=== PATIENT | male | born 1960 | race Caucasian/White ===

== ENCOUNTER 2024-05-21 21:49 | Inpatient (IN) | payer OTHER ==
[~2024-05-21 21:49] MED LIST: Iopamidol 370 76% 100 ML VIAL ONE
[2024-05-21 22:37] LABS: #Basophils 0.03 10x3/uL (0.0-0.2); %Basophils 0.4 % (0.0-1.0); %Eosinophils 1.5 % (0.0-10.0); %Lymphocytes 20.6 % (21.0-51.0); %Monocytes 6.7 % (0.0-10.0); %Neutrophils 70.5 % (42.0-75.0); Hematocrit 24.7 % (42.0-52.0); Hemoglobin 7.7 g/dL (14.0-18.0); Mean Corpuscular HGB CONC 31.2 g/dL (32.0-36.0); Mean Corpuscular Hemoglobin 24.4 pg (27.0-31.0); Mean Corpuscular Volume 78.2 fL (78.0-98.0); Mean Platelet Volume 10.3 fL (7.4-10.4); Platelet Count 149 10x3/uL (130-400); RBC Distribution Width 15.9 % (11.5-14.5); Red Blood Cell (RBC) Count 3.16 mill/uL (4.70-6.10)
[2024-05-21] MEDS ORDERED: Pantoprazole 40 MG VIAL ONE (22:47)
[2024-05-21] MEDS ORDERED: Ondansetron PF 4 MG/2 ML Vial ONE (22:47)
[2024-05-21 22:56] LABS: INR-International Normal Ratio 1.7
[2024-05-21 22:57] LABS: ALT (SGPT) 20 U/L (8-55); AST (SGOT) 15 U/L (5-34); Albumin 2.9 g/dL (3.4-4.8); Alkaline Phosphatase 83 U/L (40-110); Anion Gap 12 mmol/L (10-20); BUN (Urea Nitrogen) 23 mg/dL (8.4-25.7); Bilirubin, Total 0.3 mg/dL (0.2-1.2); Calc. Creatinine Clearance 0 mL/min (70-130); Calcium 8.1 mg/dL (7.8-10.44); Carbon Dioxide 21 mmol/L (23-31); Chloride 107 mmol/L (98-107); Estimated GFR 57; Glucose 148 mg/dL (80-115); Potassium 3.9 mmol/L (3.5-5.1); Protein, Total 6.9 g/dL (5.8-8.1); Sodium 136 mmol/L (136-145)
[2024-05-21 22:58] LABS: PTT 96.7 sec (22.9-36.1)
[2024-05-21 23:02] LABS: Troponin I 0.033 ng/mL (< 0.028)
[2024-05-22] MEDS ORDERED: Ondansetron PF 4 MG/2 ML Vial IVP PRN (00:43)
[2024-05-22 01:20] LABS: Troponin I 0.019 ng/mL (< 0.028)
[2024-05-22 01:21] LABS: Hematocrit 23.7 % (42.0-52.0); Hemoglobin 7.3 g/dL (14.0-18.0)
[2024-05-22 02:39] VITALS: BMI 32.4
[2024-05-22] MEDS: Sodium Chloride 0.9% 1,000 ML IV SCH (02:46)
[2024-05-22] MEDS: Pantoprazole 80 MG, Admixture Fee 1 EACH in Sodium Chloride 0.9% 100 ML IVPB SCH (04:19)
[2024-05-22 04:38] LABS: #Basophils Less than 0.03 10x3/uL (0.0-0.2); %Basophils 0.4 % (0.0-1.0); %Eosinophils 1.9 % (0.0-10.0); %Lymphocytes 19.3 % (21.0-51.0); Hemoglobin 7.1 g/dL (14.0-18.0); Mean Corpuscular HGB CONC 30.9 g/dL (32.0-36.0); Mean Corpuscular Hemoglobin 24.5 pg (27.0-31.0); Mean Corpuscular Volume 79.3 fL (78.0-98.0); Mean Platelet Volume 10.4 fL (7.4-10.4); Platelet Count 147 10x3/uL (130-400)
[2024-05-22 04:46] LABS: Anion Gap 11 mmol/L (10-20); BUN (Urea Nitrogen) 23 mg/dL (8.4-25.7); Calc. Creatinine Clearance 72 mL/min (70-130); Calcium 7.9 mg/dL (7.8-10.44); Carbon Dioxide 22 mmol/L (23-31); Chloride 107 mmol/L (98-107); Estimated GFR 58; Glucose 126 mg/dL (80-115); Potassium 3.9 mmol/L (3.5-5.1); Sodium 136 mmol/L (136-145)
[2024-05-22 04:55] LABS: Troponin I Less than 0.010 ng/mL (< 0.028)
[2024-05-22 08:55] LABS: Hematocrit 27.3 % (42.0-52.0); Hemoglobin 8.4 g/dL (14.0-18.0)
[2024-05-22 12:42] LABS: Hemoglobin 8.1 g/dL (14.0-18.0)
[2024-05-22] MEDS: GoLYTELY 4,000 ml Bottle PO SCH (18:28)
[2024-05-22 18:39] LABS: Hematocrit 29.8 % (42.0-52.0); Hemoglobin 8.9 g/dL (14.0-18.0)
[2024-05-22] MEDS: FLU (Fluad Triv) TS24-25 (65UP)/MF59C/PF 45 MCG/0.5 ML Syringe IM ONE (19:04)
[2024-05-23] MEDS: Morphine 2 MG/ML VIAL SLOW IVP SCH (02:34)
[2024-05-23 05:34] LABS: #Basophils 0.04 10x3/uL (0.0-0.2); %Basophils 0.5 % (0.0-1.0); %Eosinophils 1.9 % (0.0-10.0); %Lymphocytes 12.7 % (21.0-51.0); %Monocytes 7.1 % (0.0-10.0); %Neutrophils 77.4 % (42.0-75.0); Hemoglobin 8.9 g/dL (14.0-18.0); Mean Corpuscular HGB CONC 31.8 g/dL (32.0-36.0); Mean Corpuscular Hemoglobin 24.7 pg (27.0-31.0); Mean Corpuscular Volume 77.8 fL (78.0-98.0); Mean Platelet Volume 10.5 fL (7.4-10.4); Platelet Count 191 10x3/uL (130-400); RBC Distribution Width 15.6 % (11.5-14.5)
[2024-05-23 06:06] LABS: Anion Gap 14 mmol/L (10-20); BUN (Urea Nitrogen) 16 mg/dL (8.4-25.7); Calc. Creatinine Clearance 69 mL/min (70-130); Calcium 8.3 mg/dL (7.8-10.44); Carbon Dioxide 20 mmol/L (23-31); Chloride 108 mmol/L (98-107); Estimated GFR 55; Glucose 100 mg/dL (80-115); Potassium 4.1 mmol/L (3.5-5.1); Sodium 138 mmol/L (136-145)
[2024-05-23 06:27] LABS: INR-International Normal Ratio 1.8
[2024-05-23] MEDS ORDERED: Ipratropium/Albuterol 3 ML NEB NEB PRN (08:00)
[2024-05-23] MEDS: Morphine 4 MG/ML VIAL SLOW IVP SCH (09:00)
[2024-05-23] MEDS: Clindamycin/D5W 900 MG in Premix 1 BAG IVPB SCH (09:02)
[2024-05-23] MEDS: Lidocaine 4% Patch TD SCH (09:02)
[2024-05-23] MEDS: Lactated Ringer's 1,000 ML IV SCH (09:36)
[2024-05-23] MEDS ORDERED: PROPOFOL 20 ML ONE (09:39)
[2024-05-23] MEDS ORDERED: Lidocaine 1% PF 5 ML VIAL ONE (09:39)
[2024-05-23] MEDS: Ipratropium/Albuterol 3 ML NEB NEB SCH (10:38)
[2024-05-23] MEDS ORDERED: PROPOFOL 200 MG/20 ML VIAL ONE (12:02)
[2024-05-23] MEDS ORDERED: Albuterol 2.5 MG (3 mL) NEB NEB PRN (14:01)
[2024-05-23] MEDS: Morphine 2 MG/ML VIAL SLOW IVP PRN (16:05)
[2024-05-23] MEDS: Gabapentin 300 MG CAP PO SCH ×2 (16:12→21:13)
[2024-05-23 17:20] LABS: Troponin I 0.014 ng/mL (< 0.028)
[2024-05-23] MEDS: Atorvastatin Calcium 10 MG TAB PO SCH (21:12)
[2024-05-23] MEDS: Loratadine 10 MG TAB PO SCH (21:13)
[2024-05-23] MEDS: DULoxetine 30 MG CAP PO SCH (21:13)
[2024-05-23] MEDS: Furosemide 20 MG TAB PO SCH (21:14)
[2024-05-23] MEDS: Terazosin HCl 1 MG CAP PO SCH (21:14)
[2024-05-23] MEDS: Oxybutynin 5 MG TAB PO SCH (21:14)
[2024-05-24] MEDS: Transdermal Patch Removal TOP SCH (01:50)
[2024-05-24 04:08] LABS: #Basophils 0.03 10x3/uL (0.0-0.2)
[2024-05-24 04:35] LABS: Anion Gap 11 mmol/L (10-20); BUN (Urea Nitrogen) 13 mg/dL (8.4-25.7); Calc. Creatinine Clearance 63 mL/min (70-130); Calcium 8.4 mg/dL (7.8-10.44); Carbon Dioxide 21 mmol/L (23-31); Chloride 107 mmol/L (98-107); Estimated GFR 49; Glucose 119 mg/dL (80-115); Potassium 4.1 mmol/L (3.5-5.1); Sodium 135 mmol/L (136-145)
[2024-05-24 04:42] LABS: INR-International Normal Ratio 1.7; Prothrombin Time 19.9 sec (12.0-14.7)
[2024-05-24 06:19] LABS: %Basophils 0.5 % (0.0-1.0); %Eosinophils 3.6 % (0.0-10.0); %Lymphocytes 19.1 % (21.0-51.0); %Monocytes 7.5 % (0.0-10.0); Hematocrit 27.9 % (42.0-52.0); Hemoglobin 8.7 g/dL (14.0-18.0); Mean Corpuscular HGB CONC 31.2 g/dL (32.0-36.0); Mean Corpuscular Hemoglobin 24.9 pg (27.0-31.0); Mean Corpuscular Volume 79.7 fL (78.0-98.0); Mean Platelet Volume 10.6 fL (7.4-10.4); Platelet Count 232 10x3/uL (130-400); RBC Distribution Width 16.1 % (11.5-14.5)
[2024-05-24] MEDS: Allopurinol 100 MG TAB PO SCH (09:16)
[2024-05-24] MEDS: Amlodipine 5 MG TAB PO SCH (09:16)
[2024-05-24] MEDS: Ferrous Sulfate 325 MG TAB PO SCH (09:16)
[2024-05-24] MEDS: Gabapentin 300 MG CAP PO SCH (09:16)
[2024-05-24] MEDS: Pantoprazole 40 MG VIAL IVP SCH (09:17)
[2024-05-24] MEDS: Enoxaparin 100 MG (1 mL) SYRINGE SC SCH (09:19)
[2024-05-24] MEDS: Ketotifen 0.035% Ophth Soln 5 ml Bottle L EYE SCH (17:35)
[2024-05-24] MEDS: diphenhydrAMINE 25 MG CAP PO PRN (17:41)
[2024-05-25 04:34] LABS: #Basophils 0.04 10x3/uL (0.0-0.2); %Basophils 0.7 % (0.0-1.0); %Eosinophils 6.6 % (0.0-10.0); %Lymphocytes 18.3 % (21.0-51.0); %Monocytes 7.4 % (0.0-10.0); %Neutrophils 66.7 % (42.0-75.0); Hematocrit 29.2 % (42.0-52.0); Mean Corpuscular HGB CONC 30.8 g/dL (32.0-36.0); Mean Corpuscular Hemoglobin 24.9 pg (27.0-31.0); Mean Corpuscular Volume 80.9 fL (78.0-98.0); Mean Platelet Volume 10.2 fL (7.4-10.4); Platelet Count 213 10x3/uL (130-400); Red Blood Cell (RBC) Count 3.61 mill/uL (4.70-6.10)
[2024-05-25 04:47] LABS: INR-International Normal Ratio 1.6
[2024-05-25 04:50] LABS: Anion Gap 12 mmol/L (10-20); BUN (Urea Nitrogen) 13 mg/dL (8.4-25.7); Calc. Creatinine Clearance 62 mL/min (70-130); Calcium 8.8 mg/dL (7.8-10.44); Carbon Dioxide 25 mmol/L (23-31); Chloride 105 mmol/L (98-107); Estimated GFR 49; Glucose 154 mg/dL (80-115); Potassium 4.3 mmol/L (3.5-5.1); Sodium 138 mmol/L (136-145)
[2024-05-25] MEDS: Acetaminophen 325 MG TAB PO PRN (10:32)
[2024-05-25] MEDS: HYDROcodone/Acetaminophen 5/325 mg Tablet PO PRN (12:39)
[2024-05-25] MEDS: Warfarin Sodium 5 MG TAB PO SCH (16:35)
[2024-05-26 04:42] LABS: #Basophils 0.05 10x3/uL (0.0-0.2); %Basophils 0.7 % (0.0-1.0); %Eosinophils 7.3 % (0.0-10.0); %Lymphocytes 22.1 % (21.0-51.0); %Monocytes 7.4 % (0.0-10.0); %Neutrophils 62.4 % (42.0-75.0); Hematocrit 28.4 % (42.0-52.0); Hemoglobin 8.9 g/dL (14.0-18.0); Mean Corpuscular HGB CONC 31.3 g/dL (32.0-36.0); Mean Corpuscular Hemoglobin 24.7 pg (27.0-31.0); Mean Corpuscular Volume 78.9 fL (78.0-98.0); Mean Platelet Volume 9.8 fL (7.4-10.4); Platelet Count 215 10x3/uL (130-400)
[2024-05-26 04:59] LABS: Anion Gap 9 mmol/L (10-20); BUN (Urea Nitrogen) 19 mg/dL (8.4-25.7); Calc. Creatinine Clearance 62 mL/min (70-130); Calcium 8.4 mg/dL (7.8-10.44); Carbon Dioxide 26 mmol/L (23-31); Chloride 105 mmol/L (98-107); Estimated GFR 48; Glucose 134 mg/dL (80-115); Sodium 136 mmol/L (136-145)
[2024-05-26 05:17] LABS: INR-International Normal Ratio 1.4
[2024-05-26] MEDS ORDERED: Amlodipine 5 MG TAB PO SCH (07:30)
[2024-05-26] MEDS: Amlodipine 10 MG TAB PO SCH (08:44)
[2024-05-26 08:45] VITALS: BP 168/78
[2024-05-26 11:35] VITALS: TEMP 98.4
== END 2024-05-26 11:47 | DRG 394 ==
LOC: ERS 21:49 → 2SE 05-22 02:11 → EEVIPCON 05-22 02:11 → ERHOLD 05-22 02:14 → 2NO 05-22 02:16
PROVIDERS: ADMIT Internal Medicine; ATTEND Family Medicine
PROC: 30233N1 Transfusion of Nonautologous Red Blood Cells into Peripheral Vein, Percutaneous Approach (ICD-10-PCS; 2024-05-22)
PROC: 3E02340 Introduction of Influenza Vaccine into Muscle, Percutaneous Approach (ICD-10-PCS; 2024-05-22)
PROC: 0DB68ZX Excision of Stomach, Via Natural or Artificial Opening Endoscopic, Diagnostic (ICD-10-PCS; principal; 2024-05-23)
PROC: 0DJD8ZZ Inspection of Lower Intestinal Tract, Via Natural or Artificial Opening Endoscopic (ICD-10-PCS; 2024-05-23)
DX: K64.8 Other hemorrhoids (principal); D62 Acute posthemorrhagic anemia; L03.115 Cellulitis of right lower limb; L03.116 Cellulitis of left lower limb; N17.9 Acute kidney failure, unspecified; I5A Non-ischemic myocardial injury (non-traumatic); E11.42 Type 2 diabetes mellitus with diabetic polyneuropathy; E11.22 Type 2 diabetes mellitus with diabetic chronic kidney disease; N18.30 Chronic kidney disease, stage 3 unspecified; I25.10 Atherosclerotic heart disease of native coronary artery without angina pectoris; G89.29 Other chronic pain; M54.9 Dorsalgia, unspecified; J44.9 Chronic obstructive pulmonary disease, unspecified; K63.5 Polyp of colon; K64.4 Residual hemorrhoidal skin tags; K31.7 Polyp of stomach and duodenum; M25.551 Pain in right hip; Z23 Encounter for immunization; Z79.01 Long term (current) use of anticoagulants; Z95.2 Presence of prosthetic heart valve; Z88.0 Allergy status to penicillin; Z90.49 Acquired absence of other specified parts of digestive tract; Z79.899 Other long term (current) drug therapy; Z79.4 Long term (current) use of insulin
CPT/HCPCS: 36415; 36430; 71045; 74177; 80048; 80053; 82274; 83690; 84484; 85014; 85018; 85025; 85610; 85730; 86141; 86850; 86900; 86901; 88305; 93005; 93010; 96374; 96375; J1650; J2272; J2405; J2470; J2704; J3490; J7030; J7120; P9016; Q9967